=== PATIENT | male | born 1965 | race Caucasian/White ===

== ENCOUNTER → 2018-12-13 | Outpatient (CLI) | payer OTHER ==
[~2018-12-13] MED LIST: ATORVASTATIN CA10 MG PO; BENICAR 5 MG5 M1 PO; BENICAR20 MG PO; CARDIZEM CD 18180 M3 PO; PRADAXA150 MG PO
== END ==
LOC: M.RAD 10:16
DX: M25.461 Effusion, right knee (principal); Z88.2 Allergy status to sulfonamides

== ENCOUNTER → 2019-01-19 | Outpatient (CLI) | payer OTHER ==
[2019-01-19 09:31] LABS: ABSOLUTE BASOPHILS 0.1 thou/uL (0.0-0.2); ABSOLUTE EOSINOPHILS 0.1 thou/uL (0.0-0.7); ABSOLUTE LYMPHOCYTES 1.4 thou/uL (0.8-5.3); ABSOLUTE MONOCYTES 0.6 thou/uL (0.0-1.2); ABSOLUTE NEUTROPHILS 3.9 thou/uL (1.6-8.1); BASOPHILS 1.1 %; EOSINOPHILS 1.5 %; HEMATOCRIT 47.5 % (42.0-52.0); HEMOGLOBIN 16.1 gm/dL (14.0-18.0); LYMPHOCYTES 23.4 %; MCH 31.1 pg (26.0-34.0); MCHC 33.8 g/dL (28.0-37.0); MONOCYTES 9.9 %; MPV 7.4 fl. (7.2-11.1); NUCLEATED RBCS 0 /100WBC; PLATELET COUNT* 205 thou/uL (150-400); POLYS 64.1 %; RBC 5.17 mil/uL (4.50-6.00); RDW-CV 13.7 % (10.5-14.5); WBC 6.1 thou/uL (4.0-11.0)
[2019-01-19 09:57] LABS: ALBUMIN 4.3 g/dL (3.4-5.0); ALKALINE PHOSPHATASE 72 U/L (46-116); ANION GAP 7 mmol/L (7-16); BUN 18 mg/dL (7-18); CALCIUM 9.2 mg/dL (8.5-10.1); CHLORIDE 102 mmol/L (98-107); CO2 28 mmol/L (21-32); CREATININE 1.1 mg/dL (0.6-1.3); GLUCOSE 103 mg/dL (70-99); MAGNESIUM 2.2 mg/dL (1.8-2.4); POTASSIUM 4.6 mmol/L (3.5-5.1); SGOT 21 U/L (15-37); SGPT 37 U/L (30-65); SODIUM 137 mmol/L (136-145); TOTAL BILIRUBIN 1.7 mg/dL (<0.1-1.0); TOTAL PROTEIN 7.7 g/dL (6.4-8.2)
[2019-01-19 09:58] LABS: SERUM ASSESSMENT Clear
[2019-01-19 10:09] LABS: CHOLESTEROL 231 mg/dL (<200); HDL CHOLESTEROL 130 mg/dL (>40); LDL CHOLESTEROL 94 mg/dL (<100); TC:HDL 1.8 Ratio (Not establshd); TRIGLYCERIDE 35 mg/dL (<150); VLDL 7 mg/dL (<40)
== END ==
LOC: M.LAB 08:45
PROVIDERS: Registered Nurse
DX: I48.91 Unspecified atrial fibrillation (principal); I10 Essential (primary) hypertension; E78.2 Mixed hyperlipidemia; R17 Unspecified jaundice

== ENCOUNTER → 2019-02-09 | Outpatient (CLI) | payer OTHER | LOC: M.ULTRA 09:00 | DX: K76.89 Other specified diseases of liver (principal); R17 Unspecified jaundice ==

== ENCOUNTER → 2019-02-15 | Outpatient (CLI) | payer OTHER | LOC: M.LAB 10:01 | DX: Z00.00 Encounter for general adult medical examination without abnormal findings (principal) ==

== ENCOUNTER → 2019-03-23 | Outpatient (CLI) | payer OTHER | LOC: M.CT 11:00 | DX: Z13.6 Encounter for screening for cardiovascular disorders (principal); E78.00 Pure hypercholesterolemia, unspecified; I25.10 Atherosclerotic heart disease of native coronary artery without angina pectoris ==